=== PATIENT | male | born 1995 | race Hispanic/Latino ===

== ENCOUNTER 2023-12-10 14:08 | Emergency (ER) | payer BC ==
[~2023-12-10] VITALS: Ht 165.1 cm; Wt 64.4 kg
[~2023-12-10 14:08] MED LIST: AMOX1TAB16 PO
[2023-12-10] MEDS: ketOROlac 15MG/ML VIAL (15MG/ML) IM STA (15:41)
[2023-12-10] MEDS ORDERED: CLOT15C TP (17:18)
[2023-12-10 17:20] VITALS: BP 129/62; PULSE 81; RESP 18; TEMP 98.1; O2SAT 97
== END 2023-12-10 17:26 | disposition home or self-care (01) ==
LOC: EDH 14:08
DX: B35.3 Tinea pedis (principal); J45.909 Unspecified asthma, uncomplicated; Z79.2 Long term (current) use of antibiotics
CPT/HCPCS: 99284; 73600; 73620; 96372; J1885

== ENCOUNTER 2023-12-16 08:09 | Emergency (ER) | payer BC ==
[~2023-12-16] VITALS: Ht 165.1 cm; Wt 64.4 kg
[~2023-12-16 08:09] MED LIST changes: +CLOT15C TP
[2023-12-16] MEDS ORDERED: LACTATED RINGERS 1000ML 1,000 ML IV ONE (08:30)
[2023-12-16 08:43] LABS: BASOPHILS # (AUTO) 0.08 K/uL (0.00-0.20); BASOPHILS % (AUTO) 0.8 % (0.0-5.0); EOSINOPHILS # (AUTO) 0.22 K/uL (0.00-0.70); EOSINOPHILS % (AUTO) 2.3 % (0.0-8.0); HEMATOCRIT 49.4 % (42-54); IMMATURE GRANULOCYTE ABSOLUTE 0.12 K/uL (0-1); LYMPHOCYTES # (AUTO) 1.1 K/uL (1.0-4.8); LYMPHOCYTES % (AUTO) 11.8 % (21.0-51.0); MEAN CORPUSCULAR HEMOGLOBIN 31.7 pg (27.0-33.0); MEAN CORPUSCULAR VOLUME 90.5 fL (79-99); MONOCYTES # (AUTO) 0.6 K/uL (0.1-1.0); NEUTROPHILS # (AUTO) 7.4 K/uL (1.8-7.7); NEUTROPHILS % (AUTO) 77.8 % (40.0-77.0); PLATELET COUNT (AUTO) 250 K/uL (130-400); RED BLOOD CELL COUNT(AUTO) 5.46 MIL/uL (4.50-6.20); RED CELL DISTRIBUTION WIDTH 12.4 % (11.0-15.5); WHITE BLOOD COUNT (AUTO) 9.5 K/uL (4.8-10.8)
[2023-12-16 08:53] LABS: CREATININE 1.1 mg/dL (0.5-1.3); POTASSIUM 3.9 mmol/L (3.5-5.1)
[2023-12-16 08:58] LABS: ALBUMIN 4.3 g/dL (3.5-5.0); BILIRUBIN,TOTAL 1.1 mg/dL (0.2-1.0); TOTAL PROTEIN, SERUM 7.7 g/dL (6.0-8.3)
[2023-12-16 11:08] LABS: APPEARANCE,URINE CLOUDY (CLEAR); BILIRUBIN,URINE NEGATIVE (NEGATIVE); COLOR,URINE YELLOW (YELLOW); GLUCOSE, URINE (UA) NEGATIVE (NEGATIVE); KETONES,URINE NEGATIVE (NEGATIVE); LEUKOCYTE ESTERASE ,URINE NEGATIVE Leu/uL (NEGATIVE); NITRATE,URINE NEGATIVE (NEGATIVE); OCCULT BLOOD,URINE NEGATIVE (NEGATIVE); PROTEIN,URINE NEGATIVE (NEGATIVE); UROBILINOGEN,URINE 0.2 mg/dL (0.2-1.0)
[2023-12-16 11:14] LABS: ADD UA MICROSCOPIC YES
[2023-12-16 11:31] VITALS: BP 119/77; PULSE 77; RESP 16; TEMP 98.3; O2SAT 98
[2023-12-16 11:50] LABS: BACTERIA,URINE RARE /HPF (None Seen); MUCUS,URINE RARE LPF (None Seen); SQUAMOUS EPITHELIAL CELL,UR RARE /HPF (0-2)
[2023-12-16] MEDS ORDERED: DICY10 PO (12:04)
== END 2023-12-16 12:06 | disposition home or self-care (01) ==
LOC: EDH 08:09
DX: K52.9 Noninfective gastroenteritis and colitis, unspecified (principal); R11.2 Nausea with vomiting, unspecified; J45.909 Unspecified asthma, uncomplicated; F17.210 Nicotine dependence, cigarettes, uncomplicated; Z79.899 Other long term (current) drug therapy
CPT/HCPCS: 36415; 80053; 81001; 82270; 82272; 83690; 85025